=== PATIENT | female | born 1990 | race Caucasian/White ===

== ENCOUNTER → 2017-06-16 | Outpatient (CLI) | payer MEDICAID ==
[~2017-06-16] MED LIST: AMITRIPTYLINE 225 MG PO; BENTYL GENERIC10 MG PO; DULOXETINE60 MG PO; FLEXERIL10 MG PO; GABAPENTIN300 M1 PO; HYDROCODONE-APA1 TA1 PO; IBUPROFEN800 MG PO; MEDROL 4MG. DOSE4 MG PO; MELOXICAM15 MG PO; MOTRIN 400MG.400 MG PO; PREDNISONE 20MG20 MG PO; ULTRAM50 MG PO; ZITHROMAX Z-PA250 M1 PO
== END ==
LOC: SL 20:12
DX: G47.33 Obstructive sleep apnea (adult) (pediatric) (principal)

== ENCOUNTER 2017-07-07 12:45 | Emergency (ER) | payer MEDICAID ==
[~2017-07-07] VITALS: Ht 162.6 cm; Wt 77.1 kg
--- NOTE | 2017-07-07 13:22 | Emergency Room Report ---
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 N Clinical Suspician of Infection? N Mental Status: 1 - Regular (Normal Baseline) Sepsis Risk:Low Sepsis Risk Have you (or family members/close friends) recently traveled outside the [place]? N If Yes, where/when: Have you had exposure to infectious disease within the past month? TB? Other? 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 She has pain to the left foot with flexion. Not taking pain medication. No direct blow. No numbness or tingling. ALLERGIES Coded Allergies: No Known Allergies (12/20/15) Home Medications Active Scripts Prednisone (Prednisone 20MG) 20 MG PO BID #10 TAB Prov: 07/02/16 Reported Medications Gabapentin 400 MG PO QID #90 CAPSULE Meloxicam (Meloxicam 15MG) 15 MG PO BID #30 Amitriptyline Hcl (Amitriptyline) 25 MG PO QHS #30 DULOXETINE HCL (Duloxetine) 60 MG PO DAILY #30 Dicyclomine Hcl (Bentyl (Generic) 10MG Capsule) 10 MG PO QID #120 History Medical History General CAD? No Angina: No [place]: No Hypertension? No Hyperlipidemia? No CHF? No DVT? No PE? No COPD? No Asthma? No Anemia? No GERD? No Gastric ulcers? No GI Bleed? No Hernia? No Thyroid Problems? No Hypothyroidism? No CVA? No Seizures? No Diabetes? No Insulin Dependent: No Insulin Pump: No Home FSBS? No Renal Insuffiency? No End Stage Renal Disease? No UTI? No Stones? No BPH? No GB Disease: No Nephritic Syndrome? No Asplenia? No Hepatitis? No Sickle Cell Disease? No Arthritis? No Migraines? No Cataracts? No Glaucoma? No MRSA? No HIV? No TB? No Anxiety? No Depression? No Cancer? No More? 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 Cardiovascular no peripheral edema, normal peripheral pulses Extremities normal range of motion, normal inspection, normal capillary refill, no pedal edema, tenderness over the tendons, dorsal left foot, worse with dorsiflexion. Patient aggressively rubbing area. No streaks or FB, no abscess. No toe involvement. FROM all toes and ankle. No edema. Ambulatory; n/v intact. Neurologic alert, normal exam, no motor/sensory deficits, oriented x 3 Medical Decision Making LABS/Meds/Orders Pt receiving controlled substance in ED? No Departure Departure Time of Disposition 1334 Disposition DC Home or Self Care(routine) Clinical Impression Primary Impression: Tendinitis of left foot Condition STABLE Referrals CHEPE HAND (PCP/Family) Patient Instructions DI for Tendinitis Additional Instructions Naproxen, see Chepe two to five days. Discharge Counseling Counseled pt/family regarding diagnosis, medications/RX, home care, follow up needs Prescriptions Current Visit Scripts NAPROXEN (NAPROXEN 500MG TAB) 500 MG PO BIDP PRN pain #20 TAB ED Critical Care Critical Care No at 1330
--- NOTE | 2017-07-07 13:22 | Emergency Room Report ---
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 N Clinical Suspician of Infection? N Mental Status: 1 - Regular (Normal Baseline) Sepsis Risk:Low Sepsis Risk Have you (or family members/close friends) recently traveled outside the [place]? N If Yes, where/when: Have you had exposure to infectious disease within the past month? TB? Other? 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 She has pain to the left foot with flexion. Not taking pain medication. No direct blow. No numbness or tingling. ALLERGIES Coded Allergies: No Known Allergies (12/20/15) Home Medications Active Scripts Prednisone (Prednisone 20MG) 20 MG PO BID #10 TAB Prov: 07/02/16 Reported Medications Gabapentin 400 MG PO QID #90 CAPSULE Meloxicam (Meloxicam 15MG) 15 MG PO BID #30 Amitriptyline Hcl (Amitriptyline) 25 MG PO QHS #30 DULOXETINE HCL (Duloxetine) 60 MG PO DAILY #30 Dicyclomine Hcl (Bentyl (Generic) 10MG Capsule) 10 MG PO QID #120 History Medical History General CAD? No Angina: No [place]: No Hypertension? No Hyperlipidemia? No CHF? No DVT? No PE? No COPD? No Asthma? No Anemia? No GERD? No Gastric ulcers? No GI Bleed? No Hernia? No Thyroid Problems? No Hypothyroidism? No CVA? No Seizures? No Diabetes? No Insulin Dependent: No Insulin Pump: No Home FSBS? No Renal Insuffiency? No End Stage Renal Disease? No UTI? No Stones? No BPH? No GB Disease: No Nephritic Syndrome? No Asplenia? No Hepatitis? No Sickle Cell Disease? No Arthritis? No Migraines? No Cataracts? No Glaucoma? No MRSA? No HIV? No TB? No Anxiety? No Depression? No Cancer? No More? 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 Cardiovascular no peripheral edema, normal peripheral pulses Extremities normal range of motion, normal inspection, normal capillary refill, no pedal edema, tenderness over the tendons, dorsal left foot, worse with dorsiflexion. Patient aggressively rubbing area. No streaks or FB, no abscess. No toe involvement. FROM all toes and ankle. No edema. Ambulatory; n/v intact. Neurologic alert, normal exam, no motor/sensory deficits, oriented x 3 Medical Decision Making LABS/Meds/Orders Pt receiving controlled substance in ED? No Departure Departure Time of Disposition 1334 Disposition DC Home or Self Care(routine) Clinical Impression Primary Impression: Tendinitis of left foot Condition STABLE Referrals CHEPE HAND (PCP/Family) Patient Instructions DI for Tendinitis Additional Instructions Naproxen, see Chepe two to five days. Discharge Counseling Counseled pt/family regarding diagnosis, medications/RX, home care, follow up needs Prescriptions Current Visit Scripts NAPROXEN (NAPROXEN 500MG TAB) 500 MG PO BIDP PRN pain #20 TAB ED Critical Care Critical Care No at 1337
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
--- OUTSIDE RECORDS SUMMARY | 2017-07-07 13:23 | External Medical Summary Rpt | CCD ---
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 Role Phone [employer] Unavailable Unavailable [...] Unavailable HAGENSCHNEIDER CINDY, Unavailable Unavailable HAGENSCHNEIDER CINDY [facility] Unavailable Unavailable INC, [facility] Unavailable Unavailable HOSPITAL, [facility] Unavailable Unavailable HOSPITAL P, [facility], Unavailable Unavailable [facility] Unavailable Unavailable IMAGING ASS, [facility] OF Unavailable [...] [facility], Unavailable Unavailable VICTOR [facility] Unavailable Unavailable ASSOCIAT, [facility], Unavailable Unavailable PLLC, [facility] PORNOY CODY, PORNOY Unavailable Unavailable CODY PORNOY CODY, PORNOY Unavailable Unavailable CODY [facility], Unavailable Unavailable [facility], Unavailable Unavailable [facility] RENUSCH TUSHAR, RENUSCH Unavailable Unavailable TUSHAR [facility] Unavailable Unavailable [facility] LIZZETTE MUNIZ MD Unavailable Unavailable ASSOCIAT, LIZZETTE MUNIZ MD [facility]OC[facility]AT STONE, STONE Unavailable Unavailable TERRANCE TAYE, TERRANCE Unavailable Unavailable TAYE Purpose Continuity of Care Document - 02-09-2014 through 2016 Problems Code Diagnosis DOS Provider Status 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 [id number] PAIN IN 07-02-2016 [facility] [id number] UNSPECIFIED 07-02-2016 [facility] SPRAIN [facility], LEFT WRIST PLLC INITIAL ENCOUNTER Z720 TOBACCO USE 07-02-2016 [facility] M797 FIBROMYALGI 06-09-2016 [facility] A PHYSICIANS GROUP R5383 OTHER 06-09-2016 [facility] FATIGUE PHYSICIANS GROUP M542 CERVICALGIA 12-20-2015 [facility] R51 HEADACHE 12-20-2015 [facility] M5199QS CONTUSION 12-20-2015 [facility] OF SCALP PHYSICIANS, INITIAL PLLC ENCOUNTER [id number] UNSPECIFIED 12-20-2015 [facility] INJURY OF MEDICAL HEAD IMAGING ASS INITIAL ENCOUNTER [id number] STRAIN 12-20-2015 [facility] MUSCLE FASC PHYSICIANS, & TENDON PLLC NECK LEVL INIT ENC A979OPN UNSPECIFIED 12-20-2015 [facility] INJURY OF MEDICAL NECK IMAGING ASS INITIAL ENCOUNTER [id number] MIGRAINE 12-16-2015 [facility] W/O HOSPITAL STATUS MIGRAINOSUS M2550 PAIN IN 10-15-2015 [facility] UNSPECIFIED PHYSICIANS JOINT GROUP M549 DORSALGIA 08-01-2015 [facility]NSPEC[facility] 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 [email or web address] FACL 7241 PAIN IN 05-06-2015 [facility] THORACIC PHYSICIANS, SPINE PLLC 5110 PLEURISY 12-28-2014 [facility] P EFFUS/[place] [address] CHEST PAIN 12-28-2014 [facility] UNSPECIFIED [facility]ING [facility] 7245 UNSPECIFIED 12-17-2014 [facility] 69451 SPASM OF 12-17-2014 [facility] 4618 OTHER ACUTE 09-11-2014 [facility]IS [facility] 7862 COUGH 09-11-2014 [facility] 34592 SPRAIN AND 07-13-2014 PORNOY CODY STRAIN OF CARPAL OF WRIST 9593 INJURY 07-13-2014 [facility] OTHER&UNSPE RADIOLOG[facility] CIFIED ASSOCIAT [employer] FOREARM&WRI ST E8888 OTHER FALL 07-13-2014 PORNOY CODY 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 53212 PAIN IN 06-15-2014 ST JOINT, HAND DILSHAD FT MAHNAZ 9599 PAIN IN 06-15-2014 LIZZETTE MUNIZ MD TISSUES OF ASSOCIAT LIMB 3670 HYPERMETROP 05-24-2014 [place] [address] INSOMNIA 03-23-2014 [facility] 77186 OTHER 03-23-2014 [facility] FATIGUE 09461 PAP SMER 03-15-2014 [facility] CERV W/LW [facility] SQUAMOUS INTRAEPITH LES V7231 ROUTINE 02-16-2014 LABORATORY GYNECOLOGIC M[facility] OF AL WIN H EXAMINATION V762 SCREENING 02-16-2014 LABORATORY FOR MINDY OF MALIGNANT WIN H NEOPLASM OF THE CERVIX 7062 SEBACEOUS 02-13-2014 [facility] 1330 SCABIES 02-09-2014 [facility] M54.16 RADICULOPAT HY, LUMBAR [...] QU 16 08 09 30 30 00 WI Ac ET 72 -2 -2 .0 00 L- ti IA 90 4- 2- 00 07 MA ve PI 14 20 20 50 RT NE 50 17 17 58 1 57 PH FU AR MA MA RA CY TE #5 25 91 MG TA B GA 53 07 08 90 30 00 WI Ac BA 74 -2 -2 .0 00 L- ti PE 60 7- 5- 00 04 MA ve NT 10 20 20 53 RT IN 30 17 17 13 5 27 PH 40 AR 0 MA MG CY CA #5 PS 91 UL E AM 00 07 08 20 10 00 WI Ac OX 09 -1 -0 .0 00 L- ti IC 33 0- 4- 00 07 MA ve IL 10 20 20 49 RT LI 90 17 17 80 N 5 71 PH 50 AR 0 MA MG CY CA #5 PS 91 UL E TR 50 06 07 30 30 00 WI Ac AZ 11 -1 -1 .0 00 L- ti OD 10 5- 4- 00 07 MA ve ON 43 20 20 49 RT E 30 17 17 37 50 1 74 PH AR MG MA CY TA BL #5 ET 91 ME 54 06 07 30 30 00 WI Ac LO 45 -1 -1 .0 00 L- ti XI 80 5- 4- 00 07 MA ve CA 96 20 20 49 RT M 41 17 17 37 15 0 73 PH AR MG MA CY TA BL #5 ET 91 AM 16 06 07 30 30 00 WI Ac IT 72 -1 -1 .0 00 L- ti RI 90 5- 4- 00 07 MA ve PT 17 20 20 49 RT YL 21 17 17 37 IN 7 72 PH E AR HC MA L CY 25 #5 MG 91 TA B DU 57 06 07 30 30 00 WI Ac LO 23 -1 -1 .0 00 L- ti XE 70 5- 4- 00 07 MA ve TI 01 20 20 49 RT NE 93 17 17 37 0 71 PH HC AR L MA DR CY 60 #5 91 MG CA P GA 53 06 07 90 30 00 WI Ac BA 74 -1 -1 .0 00 [...] GA 53 03 04 90 30 00 WI Ac BA 74 -2 -2 .0 00 [...] ME 54 02 03 30 30 00 WI Ac LO 45 -2 -1 .0 00 [...] Procedure DOS Code Location Performer Comment RADEX 88110 [facility]ER WRIST 6 [facility]TE [facility] INC MINIMUM 3 VIEWS WRIST L3908 [facility] HAND 6 TECHNOLOG TECHNOLOG ORTHOSIS IES INC IES INC EXT CONTROL COCK-UP PREFAB COMPREHEN 60151 [facility] SIVE 6 [facility] [place] [address] [facility] SCHNEID[facility] FREE 6 [facility] [place] [address] [facility] SCHNEID[facility] THYROID 6 [facility] STIMULATI INC INC NG HORMONE TSH CYANOCOBA 38537 [facility] SCHNEIDER NICKY 6 [facility] VITAMIN INC INC B-12 BLOOD 91711 [facility] SCHNEIDER COUNT 6 [facility] COMPLETE INC INC AUTO&[place] [address] [facility] ALL HEAD/BRAI 6 MEDICAL N W/[place] [address] [facility] ALL CERVICAL 6 MEDICAL SPINE W/O IMAGING CONTRAST ASS MATERIAL THERAPEUT 12124 [facility] SERRANO IC 6 [facility] TIC/DX INJECTION SUBQ/IM DRUG TST G0477 [facility] SCHNEIDER PRESUMP;C 6 [facility] PBL BEING INC INC READ DC OPT OBV ONLY RHEUMATOI 79610 [facility] Loving FACTOR 6 [facility] QUANTITAT INC INC YAMIL SEDIMENTA 80931 [facility] SCHNEIDER TION RATE 6 [facility] RBC INC INC NON-AUTOM ATED COLLECTIO 70145 [facility] MICHAEL N VENOUS 6 PHYSICIAN ADIA BLOOD S GROUP VENIPUNCT URE RADEX 80261 [facility] ALL SPINE 5 MEDICAL THORACIC IMAGING 2 VIEWS ASS 3D 57616 [facility] SCH[facility]IDER RENDERING 5 [facility] W/INTERP INC INC & POSTPROCE SS SUPERVISI ON MRI 14708 [facility] SCHNEIDER SPINAL 5 [facility] CANAL INC INC LUMBAR W/[place] [address] [facility] SCHNEIDER FREE 5 [facility] [place] [address] [facility] SCH[facility]IDER THYROID 5 [facility] STIMULATI INC INC NG HORMONE TSH COMPREHEN 57020 [facility] SIVE 5 [facility] METABOLIC INC INC PANEL 25 16899 [facility] SCHNEIDER HYDROXY 5 [facility] INCLUDES INC INC FRACTIONS IF PERFORMED CYANOCOBA 23166 [facility] SCHNEIDER NICKY 5 [facility] VITAMIN INC INC B-12 BLOOD 65191 [facility] SCHNEIDER COUNT 5 [facility] COMPLETE INC INC AUTO&AUTO DIFRNTL WBC RADEX 96429 [facility] SPINE 5 MEDICAL SERGIO THORACIC IMAGING 3 VIEWS ASS RADIOLOGI 69557 [facility] BEINE C EXAM 5 MEDICAL ATYE CHEST 2 IMAGING VIEWS ASS FRONTAL&L ATERAL THERAPEUT 72285 [facility] RENEE DEN IC 5 PRIMARY PROPHYLAC CARE TIC/DX CENTER INJECTION SUBQ/IM THERAPEUT 23212 [facility] SCHNEIDER IC 5 [facility] PROPHYLAC INC INC TIC/DX INJECTION SUBQ/IM RADEX 05937 [facility] WRIST 4 EIDER CINDY COMPLETE RADIOLOGY MINIMUM 3 ASSOCIAT VIEWS APPLICATI 25269 PORNOY PORNOY ON SHORT 4 CODY CODY ARM SPLINT FOREARM-H AND STATIC NERVE [address] CONDUCTIO 4 DILSHAD YUNG N STUDIES FT FT 7-8 MAHNAZ JOYA STUDIES NEEDLE [address] EMG EA 4 DILSHAD YUNG EXTREMTY FT FT W/PARASPI MAHNAZ JOYA NL AREA COMPLETE OPHTH 52725 [facility] 4 GRE GRE XM&EVAL COMPRE NEW PT 1/> [place] [address] [facility] THYROXINE 4 DIAGNOSTI [place] [address] [facility] THYROID 4 DIAGNOSTI DIAGNOSTI STIMULATI CS CS NG HORMONE TSH URINE 19085 [facility] TERRANCE 4 PRIMARY TAYE TEST CARE VISUAL [place] [address] LABORATOR LABORATOR SURG 4 Y Y PATHOLOGY CORPORATI CORPORATI ON OF AM ON OF AM GROSS&ADIA ROSCOPIC EXAM COLPOSCOP 47213 [facility] TERRANCE Y CERVIX 4 PRIMARY TAYE BX CERVIX CARE & CENTER ENDOCRV CURRETAGE IADNA 98914 LABORATOR LABORATOR PAPILLOMA 4 Y MINDY OF Y MINDY OF VIRUS WIN WIN HUMAN H H AMPLIFIED PROBE TQ CYTP 14184 LABORATOR LABORATOR CERVICAL/ 4 Y MINDY OF Y MINDY OF VAGINAL WIN WIN REQ H H INTERP PHYSICIAN CYTP C/V 11071 LABORATOR LABORATOR AUTO THIN 4 Y MINDY OF Y MINDY OF LYR WIN WIN PREPJ SCR H H MNL RESCR PHYS Encounters Encounter Start End Date Code Location Performer Type Date OFFICE 40105 [facility] STONE OUTPATIEN 7 7 PHYSICIAN T VISIT S GROUP 15 MINUTES HOSPITAL [facility] - 6 6 [facility] OUTPATIEN INC T EMERGENCY 85334 [facility] 6 6 [facility] DEPARTMEN INC T VISIT MODERATE SEVERITY OFFICE 23946 [facility] FRYMAN OUTPATIEN 6 6 PHYSICIAN EUG T VISIT S GROUP 15 MINUTES HOSPITAL [facility] - 6 6 [facility] OUTPATIEN INC T OFFICE 59776 [facility] FRYMAN OUTPATIEN 6 6 PHYSICIAN EUG T VISIT S GROUP 15 MINUTES OFFICE 42955 [facility] SORENSEN OUTPATIEN 6 6 PHYSICIAN STONE T VISIT S GROUP NANCY THOMAS 15 MINUTES EMERGENCY 88119 [facility]A FUNG 6 6 PHYSICIAN TUSHAR DEPARTMEN S, PLLC T VISIT HIGH/URGE NT SEVERITY HOSPITAL [facility] - 6 6 [facility] OUTPATIEN INC T EMERGENCY 89011 [facility] 6 6 [facility] DEPARTMEN INC T VISIT LOW/MODER SEVERITY OFFICE 56250 [facility] SERRANO OUTPATIEN 6 6 [facility] - 6 6 [facility] OUTPATIEN INC T OFFICE 68713 [facility] OUTPATIEN 6 6 PHYSICIAN ADIA T VISIT S GROUP 15 [facility] - 6 6 [facility] OUTPATIEN INC T OFFICE 15720 [facility] OUTPATIEN 6 6 PHYSICIAN ADIA T VISIT S GROUP 15 [facility] - 5 5 [facility] OUTPATIEN INC T OFFICE 57959 [facility] SERRANO OUTPATIEN 5 5 [facility] 10 MINUTES OFFICE 39225 [facility] OUTPATIEN 5 5 PHYSICIAN ASHLEY T NEW 45 S [facility] - 5 5 [facility] OUTPATIEN [facility] - 5 5 [facility] OUTPATIEN INC T EMERGENCY 95568 GABRIELLA MUSE 5 5 PHYSICIAN TERENCEManuel [facility] T VISIT HIGH/URGE NT SEVERITY HOSPITAL [facility] - 5 5 [facility] OUTPATIEN INC T EMERGENCY 18854 [facility] 5 [address] [facility] T VISIT MODERATE SEVERITY EMERGENCY 06123 [facility] RODRIGUEZ 5 5 [facility] T VISIT P LOW/MODER SEVERITY OFFICE 69918 [facility] OUTOSCAREN 5 5 PRIMARY T VISIT CARE [address] [place] [address] [facility] - 5 5 [facility] OUTPATIEN INC T OFFICE 03837 [facility] OUTPATIEN 4 4 PRIMARY T VISIT CARE 15 CENTER MINUTES EMERGENCY 37511 HERNANNOKristina PORNOY 4 4 CODY CODY DEPARTMEN T VISIT MODERATE SEVERITY [facility] - 4 4 DILSHAD OUTPATIEN FT T MAHNAZ OFFICE 59040 [facility] SALES OUTPATIEN 4 4 PRIMARY T VISIT CARE 15 CENTER MINUTES OFFICE 55766 [facility] OUTPATIEN 4 4 PRIMARY T VISIT CARE 15 CENTER MINUTES OFFICE 11530 [facility]ES OUTPATIEN 4 4 PRIMARY T VISIT CARE 15 CENTER MINUTES OFFICE 29531 [facility] SALES OUTPATIEN 4 4 PRIMARY T NEW 20 CARE MINUTES CENTER
--- OUTSIDE RECORDS SUMMARY | 2017-07-07 13:25 | External Medical Summary Rpt | CCD ---
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 Phone [employer] Unavailable Unavailable INC, [employer] BAJOREK DESMOND, BAJOREK Unavailable Unavailable DESMOND BEINEKE TAYE, BEINEKE Unavailable Unavailable TAYE COELHO, COELHO Unavailable Unavailable COELHO ALL, COELHO ALL Unavailable Unavailable LOVE ASHLEY, LOVE Unavailable Unavailable ASHLEY CLARK SERGIO, Unavailable Unavailable CLARK SERGIO FRANCHESCA STONE PA-C Unavailable Unavailable WILLIAMFRANCHESCA PA-C WILLIAM FRYMAN EUG, FRYMAN Unavailable Unavailable EUG MICHAEL ADIA, MICHAEL Unavailable Unavailable ADIA GORE DEN, GORE DEN Unavailable Unavailable VIZCAINO MÓNICA, VIZCAINO MÓNICA Unavailable Unavailable HAGENSCHNEIDER CINDY, Unavailable Unavailable HAGENSCHNEIDER CINDY [facility] Unavailable Unavailable INC, [facility] Unavailable Unavailable [facility]ITAL, [facility] Unavailable Unavailable HOSPITAL P, [facility], Unavailable Unavailable [facility] Unavailable Unavailable [facility]ING [facility], [facility] Unavailable Unavailable [facility] Unavailable Unavailable [facility] Unavailable Unavailable [facility] OF AM, [facility] Un[facility] Unavailable CENTER, [facility] MICHA PRATT, MICHA Unavailable Unavailable TERENCE VICTOR HUGO GRE, Unavailable Unavailable VICTOR HUGO GRE [facility], Unavailable Unavailable [facility] Unavailable Unavailable ASSOCI, [facility], Unavailable Unavailable PLLC, [facility] PORNOY CODY, PORNOY Unavailable Unavailable CODY PORNOY CODY, PORNOY Unavailable Unavailable CODY [facility], Unavailable Unavailable [facility], Unavailable Unavailable [facility] RENUSCH TUSHAR, RENUSCH Unavailable Unavailable TUSHAR [facility] Unavailable Unavailable [facility] LIZZETTE MUNIZ MD Unavailable Unavailable ASSOCIAT, LIZZETTE MUNIZ MD ASSOCIAT STONE, STONE Unavailable Unavailable TERRANCE TAYE, TERRANCE Unavailable Unavailable TAYE Purpose Continuity of Care Document - 02-09-2014 through 2016 Problems Code Diagnosis DOS Provider Status 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 A PHYSICIANS GROUP R5383 OTHER 06-09-2016 [facility] FATIGUE PHYSICIANS GROUP M542 CERVICALGIA 12-20-2015 [facility] R51 HEADACHE 12-20-2015 [facility] [id number] CONTUSION 12-20-2015 [facility] OF [facility]P PHYSICIANS, INITIAL PLLC ENCOUNTER [id number] UNSPECIFIED 12-20-2015 [place] INJURY OF MEDICAL HEAD IMAGING ASS INITIAL ENCOUNTER [id number] STRAIN 12-20-2015 [facility] MUSCLE FASC PHYSICIANS, & TENDON PLLC NECK LEVL INIT ENC J123PAW UNSPECIFIED 12-20-2015 [place] INJURY OF MEDICAL NECK IMAGING ASS INITIAL ENCOUNTER [id number] MIGRAINE 12-16-2015 [facility] W/O HOSPITAL STATUS MIGRAINOSUS M2550 PAIN IN 10-15-2015 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 LUTEUM CYST PHYSICIANS GROUP 7242 LUMBAGO 06-03-2015 [facility] 7820 DISTURBANCE 06-03-2015 [place] OF SKIN MEDICAL SENSATION IMAGING ASS V700 ROUTINE 05-15-2015 [facility] MEDICAL INC EXAM@HEALTH CARE FACL 7241 PAIN IN 05-06-2015 [facility] THORACIC PH[facility]ICIANS, SPINE PLLC 5110 PLEURISY 12-28-2014 [facility] P EFFUS/[place] [address] CHEST PAIN 12-28-2014 [place] UNSPECIFIED [facility]ICAL IMAGING ASS 7245 UNSPECIFIED 12-17-2014 [facility] 40300 SPASM OF 12-17-2014 [facility] 4618 OTHER ACUTE 09-11-2014 [facility] 7862 COUGH 09-11-2014 [facility] [place] 90645 SPRAIN AND 07-13-2014 POR[facility]Y CODY STRAIN OF CARPAL OF WRIST 9593 INJURY 07-13-2014 [facility] OTHER&UNSPE [facility] CIFIED ASSOCIAT ELBOW FOREARM&WRI ST E8888 OTHER FALL 07-13-2014 [facility] CODY 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 48565 PAIN IN 06-15-2014 ST JOINT, HAND DILSHAD FT MAHNAZ 2152 PAIN IN 06-15-2014 LIZZETTE MUNIZ MD TISSUES OF ASSOCIAT LIMB 3670 HYPERMETROP 05-24-2014 [place] [address] INSOMNIA 03-23-2014 [facility] 23278 OTHER 03-23-2014 [facility] FATIGUE 61619 PAP SMER 03-15-2014 [facility] CERV W/LW PRIMARY [facility] [place] SQUAMOUS INTRAEPITH LES V7231 ROUTINE 02-16-2014 [facility] AL [facility] EXAMINATION V762 SCREENING 02-16-2014 LABORATORY FOR MIND[facility] OF MALIGNANT WIN H NEOPLASM OF THE CERVIX 7062 SEBACEOUS 02-13-2014 [facility] CYST [facility]ENTER 1330 SCABIES 02-09-2014 [facility] PRIMARY [facility] [place] Medications Na ND Rx Da Fi Fi Am Da Di Ph RX Ph St me C No te ll ll ou ys ag ar # ys at rm s nt no ma ic us Or Da si cy ia de te s n re d GA 16 09 10 90 30 00 VT Ac BA 71 -0 -0 .0 00 [...] 0 #5 MG 91 TA BL ET QU 16 08 09 30 30 00 WA Ac ET 72 -2 -2 .0 00 L- ti IA 90 4- 2- 00 07 MA ve PI 14 20 20 50 RT NE 50 17 17 58 1 57 PH FU AR MA MA RA CY TE #5 25 91 MG TA B LA 00 08 09 60 30 00 WA Ac MO 09 -2 -2 .0 00 L- ti TR 30 4- 2- 00 07 MA ve IG 03 20 20 50 RT IN 90 17 17 58 E 1 52 PH 25 AR MA MG CY TA #5 BL 91 ET GA 53 07 08 90 30 00 VT Ac BA 74 -2 -2 .0 00 L- ti PE 60 7- 5- 00 04 MA ve NT 10 20 20 53 RT IN 30 17 17 13 5 27 PH 40 AR 0 MA MG CY CA #5 PS 91 UL E AM 00 07 08 20 10 00 VT Ac OX 09 -1 -0 .0 00 L- ti IC 33 0- 4- 00 07 MA ve IL 10 20 20 49 RT LI 90 17 17 80 N 5 71 PH 50 AR 0 MA MG CY CA #5 PS 91 UL E GA 53 06 07 90 30 00 VT Ac BA 74 -1 -1 .0 00 L- ti PE 60 5- 4- 00 07 MA ve NT 10 20 20 49 RT IN 30 17 17 37 5 77 PH 40 AR 0 MA MG CY CA #5 PS 91 UL E MENDOZA 55 06 07 9. 30 00 VT Ac MA 11 -1 -1 00 00 L- ti TR 10 5- 4- 0 07 MA ve IP 29 20 20 49 RT TA 30 17 17 37 N 9 76 PH MENDOZA AR CC MA CY 10 0 #5 MG 91 TA BL ET DI 00 06 07 12 30 00 VT Ac CY 52 -1 -1 0. 00 L- ti CL 70 5- 4- 00 07 MA ve OM 58 20 20 0 49 RT IN 60 17 17 37 E 1 75 PH 10 AR MA MG CY CA #5 PS 91 UL E TR 50 06 07 30 30 00 VT Ac AZ 11 -1 -1 .0 00 L- ti OD 10 5- 4- 00 07 MA ve ON 43 20 20 49 RT E 30 17 17 37 50 1 74 PH AR MG MA CY TA BL #5 ET 91 ME 54 06 07 30 30 00 VT Ac LO 45 -1 -1 .0 00 L- ti XI 80 5- 4- 00 07 MA ve CA 96 20 20 49 RT M 41 17 17 37 15 0 73 PH AR MG MA CY TA BL #5 ET 91 AM 16 06 07 30 30 00 VT Ac IT 72 -1 -1 .0 00 L- ti RI 90 5- 4- 00 07 MA ve PT 17 20 20 49 RT YL 21 17 17 37 IN 7 72 PH E AR HC MA L CY 25 #5 MG 91 TA B DU 57 06 07 30 30 00 WA Ac LO 23 -1 -1 .0 00 L- ti XE 70 5- 4- 00 07 MA ve TI 01 20 20 49 RT NE 93 17 17 37 0 71 PH HC AR L MA DR CY 60 #5 91 MG CA P GA 53 05 06 90 30 00 [...] CY 25 #5 MG 91 TA B GA 53 03 04 90 30 00 WA Ac BA 74 -2 -2 .0 00 [...] CY 60 #5 91 MG CA P ME 54 02 03 30 30 00 VT Ac LO 45 -2 -1 .0 00 [...] #5 PS 91 UL E DU 57 01 02 30 30 00 [...] Procedure DOS Code Location Performer Comment RADEX 69120 ALTHEA COELHO WRIST 6 MEDICAL COMPLETE IMAGING MINIMUM 3 ASS VIEWS WRIST L3908 [facility] 6 TECHNOLOG TECHNOLOG ORTHOSIS IES INC IES INC EXT CONTROL COCK-UP PREFAB CYANOCOBA 74537 [facility] SCHNEIDER NICKY 6 [facility] VITAMIN INC INC B-12 BLOOD 84589 [facility] SCHNEIDER COUNT 6 [facility] COMPLETE INC INC AUTO&[place] [address] [facility] SCHNEIDER FREE 6 [facility] [place] [address] [facility] SCHNEIDER THYROID 6 ED [facility] STIMULATI INC INC NG HORMONE TSH COMPREHEN 72497 [facility] SCHNEIDER SIVE 6 ED [facility] [place] [address] ALTHEA COELHO ALL CERVICAL 6 MEDICAL SPINE W/[place] [address] ALTHEA COELHO ALL HEAD/BRAI 6 MEDICAL N W/O IMAGING CONTRAST ASS MATERIAL DRUG TST G0477 [facility] SCHNEIDER PRESUMP;C 6 [facility] PBL BEING INC INC READ DC OPT OBV ONLY THERAPEUT 16319 [facility] SERRANO IC 6 [facility] TIC/DX INJECTION SUBQ/IM RHEUMATOI 72339 [facility] Lovnig FACTOR 6 ED [facility] QUANTITAT INC INC YAMIL SEDIMENTA 09120 [facility] SCHNE[facility]ER TION RATE 6 ED [facility] RBC INC INC NON-AUTOM ATED COLLECTIO 68989 [facility] MICHAEL N VENOUS 6 PHYSICIAN ADIA BLOOD S GROUP VENIPUNCT URE RADEX 83754 ALTHEA COELHO ALL SPINE 5 MEDICAL THORACIC IMAGING 2 VIEWS ASS 3D 76299 ALTHEA RODAS RENDERING 5 MEDICAL SERGIO W/INTERP IMAGING & ASS POSTPROCE SS SUPERVISI ON MRI 25747 ALTHEA RODAS SPINAL 5 MEDICAL SERGIO CANAL IMAGING LUMBAR ASS W/O CONTRAST MATERIAL BLOOD 41550 [facility] SCHNEIDER COUNT 5 [facility] COMPLETE INC INC AUTO&[place] [address] [facility] SCHNE[facility]ER THYROID 5 [facility]OS[facility] STIMUL[place] [address] [facility] SCHNEIDER FREE 5 [facility]OS[facility] THYROXINE INC INC 25 36127 [facility]NEID[facility] HYDROXY 5 [facility]OS[facility] INCLUDES INC INC FRACTIONS IF PERFORMED CYANOCOBA 20387 [facility] SCHNE[facility] NICKY 5 [facility]OS[facility] VITAMIN INC INC B-12 COMPREHEN 05428 [facility] SCHNEIDER SIVE 5 [facility] METABOLIC INC INC PANEL RADEX 77337 [place] [facility] SPINE 5 MEDICAL SERGIO THORACIC IMAGING 3 VIEWS ASS RADIOLOGI 63135 [place] [facility] C EXAM 5 MEDICAL TAYE CHEST 2 IMAGING VIEWS ASS FRONTAL&L ATERAL THERAPEUT 89529 [facility] RENEE DEN IC 5 PRIMARY PROPHYLAC CARE TIC/DX CENTER INJECTION SUBQ/IM THERAPEUT 50787 [facility] SCHNEIDER IC 5 [facility] PROPHYLAC INC INC TIC/DX INJECTION SUBQ/IM RADEX 15527 [facility] WRIST 4 EIDER CINDY COMPLETE RADIOLOGY MINIMUM 3 ASSOCIAT VIEWS APPLICATI 97143 PORNOY PORNOY ON SHORT 4 CODY CODY ARM SPLINT FOREARM-H AND STATIC NEEDLE 87513 LIZZETTE BONILLA EMG EA 4 DESMOND HANLEYTY W/PARASPI ASSOCIAT NL AREA COMPLETE NERVE 50644 LIZZETTE BONILLA CONDUCTIO 4 DESMOND HANLEY MD 7-8 ASSOCIAT STUDIES OPHTH 97657 [facility] 4 GRE GRE XM&EVAL COMPRE NEW PT 1/> [place] [address] [facility] THYROXINE 4 DIAGNOST[place] [address] [facility] THYROID 4 DIAGNOSTI DIAGNOSTI STIMULATI CS CS NG HORMONE TSH URINE 02981 [facility] CARLOS 4 PRIMARY TAYE TEST CARE VISUAL CENTER COLOR CMPRSN METHS COLPOSCOP 99696 [facility] CO TERRANCE Y CERVIX 4 PRIMARY TAYE BX CERVIX CARE & [place] [address] LABORATOR LABORATOR SURG 4 Y Y PATHOLOGY CORPORATI CORPORATI ON OF AM ON OF AM GROSS&ADIA ROSCOPIC EXAM IADNA 44585 LABORATOR LABORATOR PAPILLOMA 4 Y MINDY OF Y MINDY OF VIRUS WIN WIN HUMAN H H AMPLIFIED PROBE TQ CYTP 11779 LABORATOR LABORATOR CERVICAL/ 4 Y MINDY OF Y MINDY OF VAGINAL WIN WIN REQ H H INTERP PHYSICIAN CYTP C/V 60288 LABORATOR LABORATOR AUTO THIN 4 Y MINDY OF Y MINDY OF LYR WIN WIN PREPJ SCR H H MNL RESCR PHYS Encounters Encounter Start End Date Code Location Performer Type Date OFFICE 94034 [facility] STONE OUTPATIEN 7 7 PHYSICIAN T VISIT S GROUP 15 MINUTES HOSPITAL [facility] - 6 6 [facility] OUTPATIEN INC T EMERGENCY 55983 [facility] 6 6 [facility] DEPARTMEN INC T VISIT MODERATE SEVERITY OFFICE 32309 [facility] FRYMAN OUTPATIEN 6 6 PHYSICIAN EUG T VISIT S GROUP [address] [facility] FR[facility]MAN OUTPATIEN 6 6 PHYSICIAN EUG T VISIT S GROUP 15 MINUTES HOSPITAL [facility] - 6 6 [facility] OUTPATIEN INC T OFFICE 28042 [facility] FRANCHESCA OUTPATIEN 6 6 PHYSICIAN STONE T VISIT S GROUP PA-Malathi WILLIAM 15 MINUTES EMERGENCY 53373 [facility] 6 6 [facility] DEPARTMEN INC T VISIT LOW/MODER SEVERITY HOSPITAL [facility] - 6 6 [facility] OUTPATIEN INC T EMERGENCY 21062 G[facility] FUNG 6 6 PHYSICIAN TUSHAR DEPARTMEN S, PLLC T VISIT HIGH/URGE NT SEVERITY OFFICE 75791 [facility] SERRANO OUTREINALDO 6 6 [facility] EUG T VISIT HOSPITAL 15 MINUTES [facility]OSP[facility] - 6 6 [facility] OUTPATIEN INC T OFFICE 00957 [facility] MICHAEL OUTPATIEN 6 6 PHYSICIAN ADIA T VISIT S GROUP [address]ES [address] [facility] MICHAEL OUTPATIEN 6 6 PHYSICIAN ADIA T VISIT S GROUP 15 MINUTES HOSPITAL [facility] - 6 6 [facility] OUTPATIEN INC [facility] - 5 5 [facility] T OFFICE 50712 [facility] SERRANO OUTPATIEN 5 5 [facility] 10 MINUTES OFFICE 17188 [facility] 5 5 PHYSICIAN ASHLEY T NEW 45 S GROUP MINUTES HOSPITAL [facility] - 5 5 [facility] OUTPATIEN [facility] - 5 5 [facility] T EMERGENCY 13993 GABRIELLA MUSE 5 5 [facility] HIGH/URGE NT SEVERITY EMERGENCY 71457 [facility] RODRIGUEZ 5 5 [facility] T VISIT P LOW/MODER SEVERITY HOSPITAL [facility] - 5 5 [facility] T EMERGENCY 16599 [facility] 5 5 [facility] T VISIT MODERATE SEVERITY OFFICE 03968 [facility] COX OUTPATIEN 5 5 PRIMARY T VISIT CARE 15 CENTER [facility] H[facility]PITAL [facility] - 5 5 [facility] OUTPATIEN INC T OFFICE 10508 K[facility] COX OUTPATIEN 4 4 PRIMARY T VISIT CARE 15 CENTER MINUTES EMERGENCY 62186 SHANNAN BERNALY 4 4 [facility] T VISIT MODERATE SEVERITY [facility]9416 KATH[facility] SALES OUTPATIEN 4 4 PRIMARY T VISIT CARE 15 CENTER MINUTES OFFICE 30318 [facility] SALES OUTPATIEN 4 4 PRIMARY T VISIT CARE 15 CENTER MINUTES OFFICE 57960 [facility]ATH[facility] SALES OUTPATIEN 4 4 PRIMARY T VISIT CARE 15 CENTER MINUTES OFFICE 78833 KATHY SALES OUTPATIEN 4 4 PRIMARY T NEW 20 CARE MINUTES CENTER
--- OUTSIDE RECORDS SUMMARY | 2017-07-07 13:25 | External Medical Summary Rpt | CCD ---
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, [facility]available Unavailable [facility] Unavailable Unavailable IMAGING [facility], [facility] OF Unavailable [...] HUGO [facility], Unavailable Unavailable VICTOR [facility] Unavailable Unavailable ASSOCI, [facility], Unavailable Unavailable PLLC, [facility] PORNOY CODY, PORNOY Unavailable Unavailable CODY PORNOY CODY, PORNOY Unavailable Unavailable CODY [facility], Unavailable Unavailable [facility], Unavailable Unavailable [facility] RENUSCH TUSHAR, RENUSCH Unavailable Unavailable TUSHAR [facility] Unavailable Unavailable [facility] LIZZETTE MUNIZ MD Unavailable Unavailable ASSOCIAT, LIZZETTE MUNIZ MD [facility]OCIAT STONE, STONE Unavailable Unavailable TERRANCE TAYE, TERRANCE Unavailable Unavailable TAYE Purpose Continuity of Care Document - 02-09-2014 through 2016 Problems Code Diagnosis DOS Provider Status 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 SYNDROME GROUP WITH DIARRHEA [id number] PAIN IN 07-02-2016 [place] [facility] [id number] UNSPECIFIED 07-02-2016 [facility] SPRAIN [facility]ANS, LEFT WRIST PLLC INITIAL ENCOUNTER Z720 TOBACCO USE 07-02-2016 [facility] INC M797 FIBROMYALGI 06-09-2016 [facility] A PHYSICIANS GROUP R5383 OTHER 06-09-2016 [facility] FATIGUE PHYSICIANS GROUP M542 CERVICALGIA 12-20-2015 [facility] R51 HEADACHE 12-20-2015 [facility] [id number] CONTUSION 12-20-2015 [facility] OF SCALP PHYSICIANS, INITIAL PLLC ENCOUNTER [id number] UNSPECIFIED 12-20-2015 [place] INJURY OF MEDICAL HEAD IMAGING ASS INITIAL ENCOUNTER L498HAZ STRAIN 12-20-2015 [facility] MUSCLE FASC PHYSICIANS, & TENDON PLLC NECK LEVL INIT ENC [id number] UNSPECIFIED 12-20-2015 [place] INJURY OF MEDICAL NECK IMAGING ASS INITIAL ENCOUNTER O83191 MIGRAINE 12-16-2015 [facility] W/O HOSPITAL STATUS MIGRAINOSUS M2550 PAIN IN 10-15-2015 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 LUTEUM CYST PHYSICIANS GROUP 7242 LUMBAGO 06-03-2015 [facility] 7820 DISTURBANCE 06-03-2015 [place] OF SKIN MEDICAL SENSATION [facility]ING ASS V700 ROUTINE 05-15-2015 [facility] HOSP MEDICAL INC [email or web address] CARE FACL 7241 PAIN IN 05-06-2015 [facility] THORACIC PHYSICIANS, SPINE PLLC 5110 PLEURISY 12-28-2014 [facility] P EFFUS/[place] [address] CHEST PAIN 12-28-2014 [place] [facility]NSPECIFIED [facility]ING [facility] 7245 UNSPECIFIED 12-17-2014 [facility] 39504 SPASM OF 12-17-2014 [facility] 4618 OTHER ACUTE 09-11-2014 [facility] 7862 COUGH 09-11-2014 [facility] CARE TENDOY 54878 SPRAIN AND 07-13-2014 PORNOY CODY STRAIN OF CARPAL OF WRIST 9593 INJURY 07-13-2014 [facility] OTHER&UNSPE [facility] CIFIED ASSOCIAT [employer]OW [employer]&WRI ST E8888 OTHER FALL 07-13-2014 PORNOY CODY 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 98142 PAIN IN 06-15-2014 ST JOINT, HAND DILSHAD FT MAHNAZ 1795 PAIN IN 06-15-2014 LIZZETTE MUNIZ MD TISSUES OF ASSOCIAT LIMB 3670 HYPERMETROP 05-24-2014 [place] [address] INSOMNIA 03-23-2014 [facility] 43641 OTHER 03-23-2014 [facility] FATIGUE 05712 PAP SMER 03-15-2014 [facility] CERV W/LW PRIMARY [facility] CARE TENDOY SQUAMOUS INTRAEPITH LES V7231 ROUTINE 02-16-2014 LABORATORY GYNECOLOGIC M[facility] OF AL WIN H EXAMINATION V762 SCREENING 02-16-2014 LABORATORY FOR MINDY OF MALIGNANT WIN H NEOPLASM OF THE CERVIX 7062 SEBACEOUS 02-13-2014 [facility] CYST [facility] 1330 SCABIES 02-09-2014 [facility] PRIMARY CARE TENDOY Medications Na ND Rx Da Fi Fi Am Da Di Ph RX Ph St me C No te ll ll ou ys ag ar # ys at rm s nt no ma ic us Or Da si cy ia de te s n re d GA 16 09 10 90 30 00 SC Ac BA 71 -0 -0 .0 00 [...] GA 53 07 08 90 30 00 SC Ac BA 74 -2 -2 .0 00 L- ti PE 60 7- 5- 00 04 MA ve NT 10 20 20 53 RT IN 30 17 17 13 5 27 PH 40 AR 0 MA MG CY CA #5 PS 91 UL E AM 00 07 08 20 10 00 SC Ac OX 09 -1 -0 .0 00 L- ti IC 33 0- 4- 00 07 MA ve IL 10 20 20 49 RT LI 90 17 17 80 N 5 71 PH 50 AR 0 MA MG CY CA #5 PS 91 UL E GA 53 06 07 90 30 00 SC Ac BA 74 -1 -1 .0 00 L- ti PE 60 5- 4- 00 07 MA ve NT 10 20 20 49 RT IN 30 17 17 37 5 77 PH 40 AR 0 MA MG CY CA #5 PS 91 UL E MENDOZA 55 06 07 9. 30 00 SC Ac MA 11 -1 -1 00 00 L- ti TR 10 5- 4- 0 07 MA ve IP 29 20 20 49 RT TA 30 17 17 37 N 9 76 PH MENDOZA AR CC MA CY 10 0 #5 MG 91 TA BL ET DI 00 06 07 12 30 00 SC Ac CY 52 -1 -1 0. 00 L- ti CL 70 5- 4- 00 07 MA ve OM 58 20 20 0 49 RT IN 60 17 17 37 E 1 75 PH 10 AR MA MG CY CA #5 PS 91 UL E TR 50 06 07 30 30 00 SC Ac AZ 11 -1 -1 .0 00 L- ti OD 10 5- 4- 00 07 MA ve ON 43 20 20 49 RT E 30 17 17 37 50 1 74 PH AR MG MA CY TA BL #5 ET 91 ME 54 06 07 30 30 00 SC Ac LO 45 -1 -1 .0 00 L- ti XI 80 5- 4- 00 07 MA ve CA 96 20 20 49 RT M 41 17 17 37 15 0 73 PH AR MG MA CY TA BL #5 ET 91 AM 16 06 07 30 30 00 SC Ac IT 72 -1 -1 .0 00 [...] ME 54 02 03 30 30 00 SC Ac LO 45 -2 -1 .0 00 [...] Procedure DOS Code Location Performer Comment RADEX 27299 ALTHEA COELHO WRIST 6 MEDICAL COMPLETE IMAGING MINIMUM 3 ASS VIEWS WRIST L3908 [facility] HAND 6 TECHNOLOG TECHNOLOG ORTHOSIS IES INC IES INC EXT CONTROL COCK-UP PREFAB CYANOCOBA 33104 [facility] SCH[facility]ID[facility] NICKY 6 [facility] VITAMIN INC INC B-12 BLOOD 00037 [facility] SCHNEID[facility] COUNT 6 [facility] COMPLETE INC INC AUTO&[place] [address] [facility] FREE 6 [facility] [place] [address] [facility] SCH[facility]ER THYROID 6 [facility] STIMULATI INC INC NG HORMONE TSH COMPREHEN 66952 [facility] SCHNE[facility]ER SIVE 6 [facility] [address] ALTHEA COELHO ALL CERVICAL 6 MEDICAL SPINE W/[place] [address] ALTHEA COELHO ALL HEAD/BRAI 6 MEDICAL N W/O IMAGING CONTRAST ASS MATERIAL DRUG TST G0477 [facility] SCHNE[facility]ER PRESUMP;C 6 [facility] PBL BEING INC INC READ DC OPT OBV ONLY THERAPEUT 50856 [facility] SERRANO IC 6 [facility] TIC/DX INJECTION SUBQ/IM RHEUMATOI 93009 [facility] Loving FACTOR 6 [facility] QUANTITAT INC INC YAMIL SEDIMENTA 17392 [facility]NE[facility]ER TION RATE 6 [facility] RBC INC INC NON-AUTOM ATED COLLECTIO 80121 [facility] N VENOUS 6 PHYSICIAN ADIA BLOOD S GROUP VENIPUNCT URE RADEX 83713 ALTHEA COELHO ALL SPINE 5 MEDICAL THORACIC IMAGING 2 VIEWS ASS 3D 17188 ALTHEA RODAS RENDERING 5 MEDICAL SERGIO W/INTERP IMAGING & ASS POSTPROCE SS SUPERVISI ON MRI 68213 ALTHEA RODAS SPINAL 5 MEDICAL SERGIO CANAL IMAGING LUMBAR ASS W/O CONTRAST MATERIAL BLOOD 78427 [facility] SCHNEIDER COUNT 5 [facility] COMPLETE INC INC AUTO&[place] [address] [facility] THYROID 5 [facility] STIMUL[place] [address] [facility] SCHNEIDER FREE 5 [facility]OS[facility] THYROXINE INC INC 25 40658 [facility] HYDROXY 5 [facility]OS[facility] INCLUDES INC INC FRACTIONS IF PERFORMED CYANOCOBA 19798 [facility] SCH[facility]ER NICKY 5 [facility] VITAMIN INC INC B-12 COMPREHEN 65978 [facility] SIVE 5 [facility] METABOLIC INC INC PANEL RADEX 24335 [place] SPINE 5 MEDICAL SERGIO THORACIC IMAGING 3 VIEWS ASS RADIOLOGI 39272 [facility] C EXAM 5 MEDICAL TAYE CHEST 2 IMAGING VIEWS ASS FRONTAL&L ATERAL THERAPEUT 67710 [facility] RENEE DEN IC 5 PRIMARY PROPHYLAC CARE TIC/DX CENTER INJECTION SUBQ/IM THERAPEUT 74410 [facility] SCHNEIDER IC 5 [facility] PROPHYLAC INC INC TIC/DX INJECTION SUBQ/IM RADEX 74287 [facility] WRIST 4 EIDER CINDY COMPLETE RADIOLOGY MINIMUM 3 ASSOCIAT VIEWS APPLICATI 92850 PORNOY PORNOY ON SHORT 4 CODY CODY ARM SPLINT FOREARM-H AND STATIC NEEDLE 64899 LIZZETTE BONILLA EMG EA 4 DESMOND HANLEYTY W/PARASPI ASSOCIAT NL AREA COMPLETE NERVE 89281 LIZZETTE BONILLA CONDUCTIO 4 DESMOND HANLEY MD 7-8 ASSOCIAT STUDIES OPHTH 66441 [facility] 4 GRE GRE XM&EVAL COMPRE NEW PT 1/> [place] [address] [facility] THYROXINE 4 DIAGNO[place] [address] [facility] THYROID 4 DIAGNOSTI DIAGNOSTI STIMULATI CS CS NG HORMONE TSH URINE 18321 [facility] CARLOS 4 PRIMARY TAYE TEST CARE VISUAL CENTER COLOR CMPRSN METHS COLPOSCOP 39258 [facility] CO TERRANCE Y CERVIX 4 PRIMARY TAYE BX CERVIX CARE & [place] [address] LABORATOR LABORATOR SURG 4 Y Y PATHOLOGY CORPORATI CORPORATI ON OF AM ON OF AM GROSS&ADIA ROSCOPIC EXAM IADNA 86338 LABORATOR LABORATOR PAPILLOMA 4 Y MINDY OF Y MINDY OF VIRUS WIN WIN HUMAN H H AMPLIFIED PROBE TQ CYTP 94021 LABORATOR LABORATOR CERVICAL/ 4 Y MINDY OF Y MINDY OF VAGINAL WIN WIN REQ H H INTERP PHYSICIAN CYTP C/V 32763 LABORATOR LABORATOR AUTO THIN 4 Y MINDY OF Y MINDY OF LYR WIN WIN PREPJ SCR H H MNL RESCR PHYS Encounters Encounter Start End Date Code Location Performer Type Date OFFICE 36837 [facility] STONE OUTPATIEN 7 7 PHYSICIAN T VISIT S GROUP 15 MINUTES [facility] - 6 6 [facility] OUTPATIEN INC T EMERGENCY 59782 [facility] 6 6 [facility] DEPARTMEN INC T VISIT MODERATE SEVERITY OFFICE 30631 [facility] FRYMAN OUTPATIEN 6 6 PHYSICIAN EUG T VISIT S GROUP [address] [facility] FR[facility] OUTPATIEN 6 6 PHYSICIAN EUG T VISIT S GROUP 15 MINUTES HOSPITAL [facility] - 6 6 [facility] OUTPATIEN INC T OFFICE 25693 [facility] FRANCHESCA OUTPATIEN 6 6 PHYSICIAN STONE T VISIT S GROUP PA-Malathi WILLIAM 15 MINUTES EMERGENCY 71797 [facility] 6 6 [facility] DEPARTMEN INC T VISIT LOW/MODER SEVERITY [facility]OSPITAL [facility] - 6 6 [facility] OUTPATIEN INC T EMERGENCY 01623 [facility] FUNG 6 6 PHYSICIAN TUSHAR DEPARTMEN S, PLLC T VISIT HIGH/URGE NT SEVERITY OFFICE 36759 [facility] SERRANO OUTREINALDO 6 6 [facility] T VISIT HOSPITAL 15 MINUTES [facility] 6 6 [facility] OUTPATIEN INC T OFFICE 59870 [facility] MIC[facility]EL OUTPATIEN 6 6 PHYSICIAN ADIA T VISIT S GROUP [address]ES [address] [facility] OUTPATIEN 6 6 PHYSICIAN ADIA T VISIT S GROUP 15 MINUTES [facility]OSP[facility] - 6 6 [facility] OUTPATIEN INC [facility] - 5 5 [facility] OUTPATIEN [facility] T OFFICE 26125 [facility] SERRANO OUTPATIEN 5 5 [facility] 10 MINUTES OFFICE 42204 [facility] 5 5 PHYSICIAN ASHLEY T NEW 45 S GROUP MINUTES [facility]OSP[facility] - 5 5 [facility]PATIEN [facility] H[facility] - 5 5 [facility] OUTPATIEN [facility] T EMERGENCY 80274 GABRIELLA MUSE 5 5 [facility] HIGH/URGE NT SEVERITY EMERGENCY 69571 [facility] RODRIGUEZ 5 5 [facility] T VISIT P LOW/MODER SEVERITY HOSPITAL [facility] - 5 5 [facility] OUTPATIEN [facility] T EMERGENCY 57415 [facility] 5 5 [facility] T VISIT MODERATE SEVERITY OFFICE 81672 [facility] COX OUTPATIEN 5 5 PRIMARY T VISIT CARE 15 CENTER [facility] HOSPITAL [facility] - 5 5 [facility] OUTPATIEN INC T OFFICE 49084 [facility] COX OUTPATIEN 4 4 PRIMARY T VISIT CARE 15 CENTER MINUTES EMERGENCY 82284 SHANNAN BERNALY 4 4 CODY CODY [facility] T VISIT MODERATE SEVERITY [facility] SALES OUTPATIEN 4 4 PRIMARY T VISIT CARE 15 CENTER MINUTES OFFICE 95348 [facility] SALES OUTPATIEN 4 4 PRIMARY T VISIT CARE 15 CENTER MINUTES OFFICE 84924 [facility] SALES OUTPATIEN 4 4 PRIMARY T VISIT CARE 15 CENTER MINUTES OFFICE 08534 [facility]ATH[facility] SALES OUTPATIEN 4 4 PRIMARY T NEW 20 CARE MINUTES CENTER
--- OUTSIDE RECORDS SUMMARY | 2017-07-07 13:25 | External Medical Summary Rpt | CCD ---
Demographics Preferred Language Spanish Marital Status Unknown Moravian Affiliation Unknown Race Unknown Ethnic Group Unknown Author Author , NISHA CAMERON Address Unknown Phone Immunization No patient found.
--- OUTSIDE RECORDS SUMMARY | 2017-07-07 13:25 | External Medical Summary Rpt | CCD ---
Demographics Preferred Language Portuguese Marital Status Unknown Sikh Affiliation Unknown Race Unknown Ethnic Group Unknown Author Author , NISHA CAMERON Address Unknown Phone Immunization No patient found.
--- OUTSIDE RECORDS SUMMARY | 2017-07-07 13:26 | External Medical Summary Rpt ---
Author Author NISHA Ahmadi, NISHA Ahmadi Organization [employer] Address Unknown Phone Unavailable
[2017-07-07] MEDS ORDERED: NAPROXEN SODIU500 MG PO (13:35)
[2017-07-07 13:40] VITALS: BP 132/77
== END 2017-07-07 13:41 | disposition home or self-care (01) ==
LOC: ER 12:45
DX: M65.872 Other synovitis and tenosynovitis, left ankle and foot (principal); F17.210 Nicotine dependence, cigarettes, uncomplicated

== ENCOUNTER → 2017-07-08 | Outpatient (CLI) | payer MEDICAID ==
[~2017-07-08] MED LIST changes: +NAPROXEN SODIU500 MG PO
--- NOTE | 2017-07-08 13:45 | RADIOLOGY REPORT PS360 ---
FOOT-LT-3 VIEWS HISTORY: LEFT FOOT PAIN ORDERING PHYSICIAN: LOLI ARCE PATIENT AGE: 26 years COMPARISON: None FINDINGS: No fracture or dislocation. No lytic or blastic change. There is normal mineralization.. The joint spaces are well-preserved. No significant degenerative/arthritic changes. No erosive changes evident. IMPRESSION: Negative left foot, no acute finding
== END ==
LOC: RAD 08:36
DX: M79.672 Pain in left foot (principal)